=== PATIENT | female | born 1980 | race Caucasian/White ===

== ENCOUNTER 2017-07-09 09:46 | Emergency (ER) | payer SELFPAY ==
[2017-07-09] MEDS ORDERED: Ibuprofen 800 MG TAB ONE (10:08)
[2017-07-09] MEDS ORDERED: Ondansetron ODT 4 MG TAB ONE (10:08)
[2017-07-09] MEDS ORDERED: Sodium Chloride 0.9% 1,000 ML ONE (10:45)
[2017-07-09] MEDS ORDERED: Labetalol HCl 100 MG/20 ML VIAL ONE (10:45)
[2017-07-09 10:46] LABS: Bilirubin Negative (Negative); Blood, Urine Small (Negative); Clarity Clear (Clear); Glucose, Urine (Dipstick) 100 mg/dL (Negative); Leukocyte Negative (Negative); Nitrite Negative (Negative); Protein, Urine (Dipstick) 100 mg/dL (Neg-Trace)
[2017-07-09 10:49] LABS: Pregnancy Test - Urine (BHCG) Negative (NEGATIVE); Pregu Control Background? CLEAR/WHITE (CLR/WHITE); Pregu Control Bar Appear? YES (CONTROL BAR)
[2017-07-09 10:54] LABS: Bacteria/HPF 1+ HPF (None Seen); RBC/HPF 0-3 HPF (0-3); Squamous Epithelial 21-50 HPF (0-3)
[2017-07-09 10:58] LABS: ALT (SGPT) 42 U/L (8-55); AST (SGOT) 41 U/L (5-34); Albumin 3.9 g/dL (3.5-5.0); Alkaline Phosphatase 71 U/L (40-150); Anion Gap 12 mmol/L (10-20); BUN (Urea Nitrogen) 10 mg/dL (7.0-18.7); Bilirubin, Total 0.7 mg/dL (0.2-1.2); Calc. Creatinine Clearance 0 mL/min (70-130); Calcium 8.9 mg/dL (7.8-10.44); Carbon Dioxide 27 mmol/L (22-29); Chloride 100 mmol/L (98-107); Estimated GFR-MDRD 68; Globulin 3.6 g/dL (2.4-3.5); Glucose 130 mg/dL (70-105); Lipase 34 U/L (8-78); Potassium 3.2 mmol/L (3.5-5.1); Protein, Total 7.5 g/dL (6.0-8.3); Sodium 136 mmol/L (136-145)
[2017-07-09 11:03] LABS: Band 15 % (5-11); Hemoglobin 12.9 g/dL (12.0-16.0); Lymphocytes 11 % (21-51); MDiff Complete? YES; Mean Corpuscular HGB CONC 33.4 g/dL (32.0-36.0); Mean Corpuscular Hemoglobin 28.9 pg (27.0-31.0); Mean Corpuscular Volume 86.4 fl (81.0-99.0); Mean Platelet Volume 6.2 fL (7.4-10.4); Neutrophil 70 % (42-75); PLT Morphology Comment Appears Adequate; Platelet Count 213 thou/uL (130-400); RBC Distribution Width 13.1 % (11.5-14.5); RBC Morphology Normal; Reactive Lymphocytes 4 % (0-10); Red Blood Cell (RBC) Count 4.46 mill/uL (4.20-5.40); White Blood Cell (WBC) Count 8.7 thou/uL (4.8-10.8)
[2017-07-09] MEDS ORDERED: cloNIDine HCl 0.1 MG TAB ONE (11:39)
[2017-07-09] MEDS ORDERED: Ketorolac Tromethamine 30 MG/ML VIAL ONE (12:18)
[2017-07-09] MEDS ORDERED: Famotidine 20 MG TAB ONE (13:48)
[2017-07-09] MEDS ORDERED: diphenhydrAMINE HCl 25 MG CAP ONE (13:49)
--- NOTE | 2017-07-09 13:50 | CT ---
HEAD CT NONCONTRAST: INDICATION: Headache with nausea and fever. FINDINGS: There is appropriate size of the ventricular system without evidence of intracranial hemorrhage, mas s effect, or midline shift. There is no acute fluid level of the imaged paranasal sinuses. IMPRESSION: No acute intracranial abnormality is visualized. If symptoms of headache and fever persist, consider brain MRI for further evaluation. POS: [facility]
--- NOTE | 2017-07-09 13:58 | RAD ---
TWO VIEW CHEST: COMPARISON: No prior comparison. CLINICAL HISTORY: Fever and headache with nausea. FINDINGS: No consolidation, effusion, or pneumothorax. The lung apices are obscured by lead shield of the nec k. Cardiac silhouette is at upper limits of normal in size. IMPRESSION: Upper lung zones are excluded by overlying shielding material. Remaining lungs reveal no lobar cons olidation. POS: [facility]
== END 2017-07-09 13:55 | disposition home or self-care (01) ==
LOC: NAV ERS 09:46
DX: N39.0 Urinary tract infection, site not specified (principal); I10 Essential (primary) hypertension; R51 Headache; B35.0 Tinea barbae and tinea capitis; R73.9 Hyperglycemia, unspecified; F32.9 Major depressive disorder, single episode, unspecified
CPT/HCPCS: 36415; 70450; 71020; 80053; 81003; 81015; 81025; 83605; 83690; 84443; 85025; 87040; 96361; 96374; 96375; J1885; J2270; J7050; Q0162